=== PATIENT | male | born 1955 | race Caucasian/White ===

== ENCOUNTER 2018-12-21 08:30 | Observation (INO) | payer MEDICAID ==
[2018-12-18 11:38] LABS: BASOPHILS # (AUTO) 0.03 x10^3/uL (0-0.1); BASOPHILS % (AUTO) 1 % (0-1); EOSINOPHILS # (AUTO) 0.05 x10^3/uL (0-0.4); EOSINOPHILS % (AUTO) 1 % (1-7); LYMPHOCYTES # (AUTO) 1.23 x10^3/uL (1-3.4); LYMPHOCYTES % (AUTO) 19 % (22-44); MD NO; MEAN CORPUSCULAR HEMOGLOBIN 28.9 pg (27.5-34.5); MEAN CORPUSCULAR VOLUME 84.9 fL (81-97); MEAN PLATELET VOLUME 7.9 fL (7.4-10.4); MONOCYTES # (AUTO) 0.34 x10^3/uL (0.2-0.8); MONOCYTES % (AUTO) 5 % (2-9); NEUTROPHILS # (AUTO) 4.78 x10^3/uL (1.8-6.8); NEUTROPHILS % (AUTO) 74 % (42-75); PLATELET COUNT 236 x10^3/uL (130-400); RED BLOOD COUNT 5.63 x10^6/uL (4.38-5.82); RED CELL DISTRIBUTION WIDTH 14.8 % (9.4-14.8)
[2018-12-18 11:46] LABS: INTERNATIONAL NORMALIZED RATIO 0.97 (0.93-1.1); PROTHROMBIN TIME 10.3 Seconds (9.6-11.5)
[2018-12-18 12:03] LABS: CHLORIDE 107 mmol/L (98-107)
[2018-12-18 12:15] LABS: ALANINE AMINOTRANSFERASE 16 U/L (12-78); ALBUMIN 3.8 g/dL (3.4-5.0); ALKALINE PHOSPHATASE 146 U/L (45-117); ANION GAP 8 mmol/L (5-15); BILIRUBIN,TOTAL 0.6 mg/dL (0.2-1.0); CALCIUM 9.2 mg/dL (8.5-10.1); CREATININE 1.05 mg/dL (0.7-1.3); TOTAL PROTEIN 7.7 g/dL (6.4-8.2)
[2018-12-18 12:35] LABS: HEMOGLOBIN A1C 5.6 % (4.2-6.3)
[~2018-12-21] VITALS: Ht 190.5 cm; Wt 115.0 kg
[~2018-12-21 08:30] MED LIST: AMLO10TA8 PO; LISI-170 PO; MELO7.5T31 PO; SERT100T32 PO; TRAZ-137 PO; [UNRECOGNIZED DRUG - REMARK]
[2018-12-21] MEDS ORDERED: LACTATED RINGERS 1,000 ML IV SCH (08:55)
[2018-12-21 09:26] VITALS: BP 153/79
[2018-12-21] MEDS ORDERED: FENTANYL PF 250 MCG/5ML ONE (10:29)
[2018-12-21] MEDS ORDERED: MIDAZOLAM 1 MG/ML, 2ML ONE (10:29)
[2018-12-21] MEDS ORDERED: VANCOMYCIN 1,000 MG ONE (10:55)
[2018-12-21] MEDS ORDERED: TRANEXAMIC ACID 100 MG/ML, 10ML ONE ×4 (10:55)
[2018-12-21] MEDS ORDERED: KETOROLAC 60 MG/2 ML ONE (10:55)
[2018-12-21] MEDS ORDERED: ROPIvacaine/PF 0.2%, 20 ML ONE (10:55)
[2018-12-21] MEDS ORDERED: EPINEPHRINE 1 MG/ML, 1ML ONE (10:56)
[2018-12-21] MEDS ORDERED: SODIUM CHLORIDE 0.9% 100 ML ONE (10:56)
[2018-12-21] MEDS ORDERED: BUPIVACAINE/PF 0.25% ONE (11:54)
[2018-12-21] MEDS ORDERED: GLYCOPYRROLATE 0.4 MG/2 ML, 2ML ONE (11:54)
[2018-12-21] MEDS ORDERED: LIDOCAINE-MPF 2% ,5ML ONE (11:54)
[2018-12-21] MEDS ORDERED: DIAZEPAM 5 MG/ML, 2ML IVPush PRN (12:00)
[2018-12-21] MEDS ORDERED: ALBUTEROL/IPRATROPIUM 2.5MG/0.5MG, 3 ML NPPB PRN (12:00)
[2018-12-21] MEDS ORDERED: METOPROLOL 1 MG/ML, 5ML IV PRN (12:00)
[2018-12-21] MEDS ORDERED: SCOPOLAMINE PATCH, 1.5MG PATCH.TD72 TD PRN (12:00)
[2018-12-21] MEDS ORDERED: MEPERIDINE/PF 25MG/0.5ML IVPush PRN (12:00)
[2018-12-21] MEDS ORDERED: ACETAMINOPHEN 325 MG TABLET PO PRN (12:00)
[2018-12-21] MEDS ORDERED: PROMETHAZINE 25 MG/ML, 1ML IV PRN (12:00)
[2018-12-21] MEDS ORDERED: GABAPENTIN 300 MG CAPSULE PO SCH (12:00)
[2018-12-21] MEDS ORDERED: MIDAZOLAM 1 MG/ML, 2ML IV PRN (12:00)
[2018-12-21] MEDS ORDERED: hydrALAzine 20 MG/ML, 1ML IV PRN (12:00)
[2018-12-21] MEDS ORDERED: ONDANSETRON ODT 8 MG PO PRN (12:00)
[2018-12-21] MEDS ORDERED: PROPOFOL 10 MG/ML, 20ML ONE (12:09)
[2018-12-21] MEDS ORDERED: DEXAMETHASONE 4 MG/ML, 1ML ONE (12:09)
[2018-12-21] MEDS ORDERED: CEFAZOLIN 1,000 MG ONE (12:09)
[2018-12-21] MEDS ORDERED: ONDANSETRON 2MG/ML, 2ML ONE (12:09)
[2018-12-21] MEDS ORDERED: MORPHINE SULFATE 4 MG/ML, 1ML ONE (12:10)
[2018-12-21] MEDS ORDERED: GABAPENTIN 300 MG CAPSULE PO ONE (12:30)
[2018-12-21] MEDS ORDERED: FENTANYL PF 100 MCG/2ML ONE (12:52)
[2018-12-21] MEDS: FENTANYL PF 100 MCG/2ML IV PRN ×2 (12:53→13:06)
[2018-12-21] MEDS ORDERED: SENNA/DOCUSATE TABLET PO PRN (13:00)
[2018-12-21] MEDS ORDERED: TRANEXAMIC ACID 1,000 MG in SODIUM CHLORIDE 0.9% 100 ML IVPB ONE (13:00)
[2018-12-21] MEDS ORDERED: MAGNESIUM HYDROXIDE 8%, 30ML UDC PO PRN (13:00)
[2018-12-21] MEDS ORDERED: ALUMINUM/MAG/SIMETHICONE 30 ML UDC PO PRN (13:00)
[2018-12-21] MEDS ORDERED: HYDROcodone/APAP 7.5-325MG/15ML UDC ONE ×2 (13:00→13:38)
[2018-12-21] MEDS ORDERED: HYDROcodone/APAP 10/325 MG TABLET PO PRN (13:00)
[2018-12-21] MEDS ORDERED: BISACODYL 10 MG SUPP PR PRN (13:00)
[2018-12-21] MEDS ORDERED: ACETAMINOPHEN 650 MG/20.3 ML UDC PO PRN (13:00)
[2018-12-21] MEDS ORDERED: DIPHENHYDRAMINE 25 MG CAPSULE PO PRN (13:00)
[2018-12-21] MEDS ORDERED: PROMETHAZINE 25 MG/ML, 1ML IM PRN (13:00)
[2018-12-21] MEDS ORDERED: HYDROmorphone 2 MG/ML, 1ML IV PRN (13:00)
[2018-12-21] MEDS ORDERED: PROMETHAZINE 12.5 MG SUPP PR PRN (13:00)
[2018-12-21] MEDS ORDERED: ONDANSETRON 2MG/ML, 2ML IV PRN (13:00)
[2018-12-21] MEDS ORDERED: ONDANSETRON 4 MG TABLET PO PRN (13:00)
[2018-12-21] MEDS: HYDROcodone/APAP 7.5-325MG/15ML UDC PO PRN ×2 (13:01→13:39)
[2018-12-21] MEDS ORDERED: HYDROmorphone 2 MG/ML, 1ML ONE (13:07)
[2018-12-21] MEDS: HYDROmorphone 2 MG/ML, 1ML IVPush PRN ×4 (13:10→13:41)
[2018-12-21] MEDS ORDERED: hydrALAzine 20 MG/ML, 1ML ONE (13:43)
[2018-12-21] MEDS ORDERED: TRAZODONE 100MG TABLET PO PRN (15:00)
[2018-12-21] MEDS: D5%-0.45NACL+KCL 20MEQ 1,000 ML IV SCH (16:19)
[2018-12-21] MEDS: ASPIRIN 81 MG TABLET EC PO SCH (18:21)
[2018-12-21] MEDS: CEFAZOLIN PMX 1GM/50ML 50 ML IVPB SCH (18:23)
[2018-12-21 19:43] VITALS: BP 115/65
[2018-12-21] MEDS: DOCUSATE 100 MG CAPSULE PO SCH (20:17)
[2018-12-21] MEDS: LISINOPRIL 20 MG TABLET PO SCH (20:17)
[2018-12-21 23:52] VITALS: BP 133/72
[2018-12-22] MEDS: D5%-0.45NACL+KCL 20MEQ 1,000 ML IV SCH (00:30)
[2018-12-22] MEDS: CEFAZOLIN PMX 1GM/50ML 50 ML IVPB SCH (03:02)
[2018-12-22] MEDS ORDERED: DEXAMETHASONE 4 MG/ML, 1ML IVPush SCH (06:00)
[2018-12-22] MEDS: ASPIRIN 81 MG TABLET EC PO SCH (06:20)
[2018-12-22 06:31] VITALS: BP 154/81
[2018-12-22] MEDS: DOCUSATE 100 MG CAPSULE PO SCH (07:29)
[2018-12-22] MEDS: LISINOPRIL 20 MG TABLET PO SCH (07:30)
[2018-12-22] MEDS: HYDROcodone/APAP 5/325 TABLET PO PRN ×2 (07:56→11:55)
[2018-12-22] MEDS ORDERED: DOCU-131 PO (08:27)
[2018-12-22] MEDS ORDERED: HYDR-3307 PO (08:27)
[2018-12-22] MEDS ORDERED: ONDA4TAB7 PO (08:27)
[2018-12-22] MEDS ORDERED: CELE200C PO (08:27)
[2018-12-22] MEDS ORDERED: TRAM50TA2 PO (08:27)
[2018-12-22] MEDS ORDERED: ASPI81TA45 PO (08:27)
[2018-12-22] MEDS ORDERED: SERTRALINE 100MG TABLET PO SCH (09:00)
[2018-12-22] MEDS ORDERED: TAMSULOSIN 0.4 MG CAP.ER.24H PO SCH (09:00)
[2018-12-22] MEDS ORDERED: AMLODIPINE 10 MG TAB PO SCH (09:00)
[2018-12-22] MEDS ORDERED: KETOROLAC 30 MG/1 ML IV SCH (13:00)
== END 2018-12-22 12:40 | disposition home or self-care (01) ==
LOC: OUT 08:30 → 3NE 14:20 → 4NOR 14:28 → DCLOUNGE 12-22 12:20
PROVIDERS: ADMIT Orthopaedic Surgery; ATTEND Orthopaedic Surgery
DX: M17.12 Unilateral primary osteoarthritis, left knee (principal); M17.11 Unilateral primary osteoarthritis, right knee; I10 Essential (primary) hypertension; Z79.899 Other long term (current) drug therapy
CPT/HCPCS: 27447; 36415; 73560; 80053; 83036; 85014; 85018; 85025; 85610; 85730; 87081; 87147; 87806; 93005; 96365; 96366; 96375; 97116; 97150; 97161; 97165; C1713; C1776; G0378; J0171; J0360; J0690; J1100; J1170; J1885; J2250; J2405; J2704; J2795; J3010; J3480; J3490; J7120; J3370; G0475